=== PATIENT | male | born 1995 | race Caucasian/White ===

== ENCOUNTER 2019-08-24 15:28 | Emergency (ER) | payer SELFPAY ==
[2019-08-24 15:40] VITALS: BP 155/111
[2019-08-24] MEDS ORDERED: BUFFERED LIDOCAINE 10 ML SYRINGE SUBQ STA (15:44)
[2019-08-24] MEDS ORDERED: BACITRACIN ZINC OINT 1 PACKET TOP STA (16:01)
--- NOTE | 2019-08-24 16:05 | ED Physician Documentation ---
History of Present Illness - Stated complaint Stated Complaint: LT THUMB SWELL - Chief complaint Chief Complaint: Wound - History obtained from History obtained from: Patient - History of Present Illness Timing: How many days ago (several) Pain level max: 5 Pain level now: 4 - Additonal information Additional information: 24-year-old male presents to the emergency department with swelling to the left thumb. This is around the base of the nail. Nothing makes it better or worse. Does not recall any injury. No fevers. No drainage. Patient is right-handed. Tetanus up-to-date. Review of Systems Constitutional: denies: Fever Skin: denies: Rash Musculoskeletal: denies: Neck pain, Back pain Neurologic: denies: Headache PD PAST MEDICAL HISTORY - Past Medical History Past Medical History: No - Past Surgical History Past Surgical History: No - Present Medications Home Medications: Ambulatory Orders Medication Instructions Recorded Confirmed Bacitracin Zinc Oint 1 applic TOP BID #1 tube 08/24/19 Cephalexin [Keflex] 500 mg PO Q6H #28 capsule 08/24/19 - Allergies Allergies/Adverse Reactions: Allergies Allergy/AdvReac Type Severity Reaction Status Date / Time No Known Drug Allergies Allergy Verified 08/24/19 15:45 - Living Situation Living Arrangement: reports: At home - Social History Does the pt drink ETOH?: Yes Substance Use and Type: Marijuana PD ED PE NORMAL - Vitals Vital signs reviewed: Yes - General General: Alert and oriented X 3, No acute distress - Derm Derm: Warm and dry - Extremities Extremities: Other (Left thumb - Redness and swelling to the lateral aspect of the nail fold. Small amount of pus visible. Neurovascular intact. No lacerations.) - Neuro Neuro: Alert and oriented X 3 - Psych Psych: Normal mood, Normal affect Results - Vitals Vitals: Vital Signs - 24 hr 08/24/19 15:37 Temperature 37.1 C Heart Rate 147 H Respiratory 22 Rate Blood Pressure 155/111 H O2 Saturation 98 Oxygen O2 Source Room air Procedures - Abscess I&D (location) Left thumb Preparation: Chlorhexadine, Lidocaine 1% Incision: Incised with scalpel, Purulent drainage Other: Pt tolerated well PD MEDICAL DECISION MAKING - ED course Complexity details: considered differential, d/w patient ED course: Patient with a left thumb paronychia. This was drained in the emergency department using the blunt edge of a scalpel to elevate the nail fold from the nail. Pus obtained. We will place on antibiotics for home. Patient counseled regarding signs and symptoms for which I believe and urgent re-evaluation would be necessary. Patient with good understanding of and agreement to plan and is comfortable going home at this time This document was made in part using voice recognition software. While efforts are made to proofread this document, sound alike and grammatical errors may occur. Departure - Departure Disposition: 01 Home, Self Care Clinical Impression: Paronychia Condition: Good Instructions: ED Fingernail Infec Follow-Up: your,doctor as needed [Other] Prescriptions: Bacitracin Zinc Oint 1 applic TOP BID #1 tube Cephalexin [Keflex] 500 mg PO Q6H #28 capsule Comments: Return if you worsen. This should improve over the next day or 2. Take all antibiotics until gone. You can soak the area twice a day in warm water as well. This will help to continue to drain the wound. Return if your swelling is getting worse, or if the redness is increasing or going up your arm.
== END 2019-08-24 16:10 | disposition home or self-care (01) ==
LOC: ED 15:28
DX: L03.012 Cellulitis of left finger (principal)
CPT/HCPCS: 26010